=== PATIENT | female | born 1990 | race African-American/Black ===

== ENCOUNTER 2017-05-26 09:53 | Emergency (ER) | payer MEDICAID ==
[~2017-05-26] VITALS: Ht 175.3 cm; Wt 152.9 kg
[~2017-05-26 09:53] MED LIST: CYCL5TAB PO; DICL75 PO; OXYC-360 PO; PREN0.01 PO
--- NOTE | 2017-05-26 10:50 | PD ---
HPI Chief Complaint gush of fluid per vagina at 1230 am Date Seen: May 26, 2017 Time Seen: 10:40 Travel History International Travel<30 Days: No Contact w/Intl Traveler<30Days: No Known Affected Area: No History of Present Illness HPI 27 yo BF 31 wks c/o vaginal gush of fluid at 1230 am no significant leakage since , no bleeding or pain , no CTXs seen FHR reactive for 31 wks , here amnisure is negative , she sees Dr Awad Weeks Gestation: 31 Para: 3 : 4 History Obstetric History Obstetric History 3 vag del Social History Alcohol Use: No Tobacco Use: No Substance Abuse: No Allergies-Medications (Allergen,Severity, Reaction): Coded Allergies: diphenhydramine (Unverified Allergy, Severe, RESPIRATORY DISTRESS, 02/04/17 ) Home Meds Reported Medications Multivit/Min/Fol Ac/Iron/Pren ( Vit ( Plus)) 27 Mg Iron-1 Mg Tab , 1 TAB PO DAILY WHILE 08/13/11 Discontinued Reported Medications Oxycodone/Acetaminophen (Percocet) 5 Mg/325 Mg Tab, 1 - 2 TAB PO Q4-6HPRN, #30 FOR PAIN 08/16/11 Discontinued Scripts Diclofenac Sod (Diclofenac Sodium Dr) 75 Mg Tab, 75 MG PO BID for 10 Days Prov:Carter Delgado MD 02/26/12 Cyclobenzaprine Hcl (Flexeril) 5 Mg Tab, 1 TAB PO Q8HPRN, #15 Prov:Carter Delgado MD 02/26/12 Review of Systems General / Constitutional: No: Fever, Weight Gain, Chills, Other Eyes: No: Diploplia, Blurred Vision, Visual changes, Pain, Photophobia HENT: No: Headaches, Vertigo, Lightheadedness Cardiovascular: No: Irregular Rhythm, Chest Pain or Discomfort, Palpitations, Tachycardia, Syncope, Varicosities, Edema, Cyanosis Respiratory: No: Cough, Short of Breath, Other Gastrointestinal: No: Nausea, Vomiting, Diarrhea Genitourinary: No: Decreased Urinary Output, Oliguria Musculoskeletal: No: Limited ROM, Weakness, Cramping, Edema, Pain Skin: No Rash, No Itching, No Dryness, No Lumps, No Change in Pigmentation, No Change in Nails, No Alopecia, No Lesions Neurologic: No: Weakness, Dizziness, Syncope, Focal Abnormalities, Coordination Problem, Headache, Slurred Speech, Seizures Psychiatric: No: Depression, Suicidal Ideations, Homicidal Ideation Endocrine: No: Heat Intolerance, Cold Intolerance, Polydipsia, Polyuria, Other Physical Exam Narrative GENERAL: Well-nourished, well-developed obese patient. SKIN: Warm and dry. HEAD: Normocephalic and atraumatic. EYES: No scleral icterus. No injection or drainage. ENT: No nasal drainage noted. Mucous membranes pink. Airway patent. NECK: Supple, trachea midline. No JVD. CARDIOVASCULAR: Regular rate and rhythm without murmurs, gallops, or rubs. RESPIRATORY: Breath sounds equal bilaterally. No accessory muscle use. BREASTS: Bilateral exam showed no masses , no retractions, no nipple discharge. ABDOMEN/GI: Abdomen soft, non-tender, bowel sounds present, no rebound, no guarding Gravid to [-31] weeks size Fundal Height: [31-] GENITOURINARY: External Genitalia: intact and normal in appearance spec exam done --no free fluid seen, minimal normal white D/C seen does not appear ruptured ] Cervix: [post -] Dilatation: [-0] Effacement: [-0] Station: [-3] Membranes: [intac ] Uterine Contractions: [none-] FHT's: Category: [-] Baseline: [-] Reactive: [-] Variability: [-] Decels: [-] EXTREMITIES: No cyanosis or edema. BACK: Nontender without obvious deformity. No CVA tenderness. NEUROLOGICAL: Awake and alert. Motor and sensory grossly within normal limits. Five out of 5 muscle strength in all muscle groups. Normal speech. Data Data Labs amnisure negative MDM Interpretation(s) 27 yo BF at 31 wks with a midnight gush of fluid per vagina none since , amnisure neg today and on spec exam no sign of leaking amniotic fluid Plan No leakage of amniotic fluid seen or detected amnisure negative ., D/C home Diagnosis Diagnosis: Primary Impression: No leakage of amniotic fluid into vagina Additional Impression: 31 weeks gestation of Disposition: DISCHARGE HOME Condition: Stable Sherwin Beckham II, MD May 26, 2017 10:50
== END 2017-05-26 11:28 | disposition home or self-care (01) ==
LOC: HOBED 09:53
DX: Z34.93 Encounter for supervision of normal pregnancy, unspecified, third trimester (principal); Z3A.31 31 weeks gestation of pregnancy; Z79.899 Other long term (current) drug therapy; Z88.8 Allergy status to other drugs, medicaments and biological substances
CPT/HCPCS: 59025; 84112